=== PATIENT | male | born 1945 | race Caucasian/White ===

== ENCOUNTER 2017-01-01 07:28 | Outpatient (CLI) | payer BC | END 2017-01-01 07:29 | disposition home or self-care (01) | LOC: PET 07:28 | PROVIDERS: ATTEND Internal Medicine Hematology & Oncology | DX: C34.80 Malignant neoplasm of overlapping sites of unspecified bronchus and lung (principal) ==

== ENCOUNTER 2017-01-04 13:26 | Outpatient (CLI) | payer BC ==
--- NOTE | 2017-01-04 21:40 | PET ---
NUCLEAR MEDICINE FDG PET CT: (Positron Emission Tomography) DATE: 01/04/17 HISTORY: 71-year-old male. Restaging of lung cancer. COMPARISON: 07/27/16 TECHNIQUE: IV injection F-18 Fluorodeoxyglucose (FDG) dose: 10.4 mCi PET and attenuation-correction CT performed from skull base to proximal thighs. FINDINGS: SUV (standard uptake value) numbers given are maximum SUV's: The previously demonstrated residual soft tissue fullness of the left hilum, with SUV of 2.9, has no t significantly changed (current SUV is 3.1). There has been interval increase in volume of the smal l left pleural effusion. There is a new left lower lobe consolidation which is contiguous with both the left hilar fullness and the left pleural effusion, and is not hypermetabolic (SUV 2.3). This pro bably represents postobstructive atelectasis at the left lower lobe. There is a new, approximately 2 x 1.5 cm right anterior upper paratracheal mediastinal lymph node wi th SUV of 8.2. There is a new, tiny, approximately 0.6 cm noncalcified pulmonary nodule in the anterior segment of the right upper lobe. It does not exhibit increased FDG uptake (SUV of 1.3), but it is probably too small for PET scan. There is a new soft tissue density mass contiguous with, and inseparable from both the right inferio r mediastinum and right posterior hilum, with SUV of 4.8. Its size is difficult to measure on a nonc ontrast CT because it is inseparable from the adjacent structures. A contrast enhanced CT may be use ful for this. No evidence of intra-abdominal, intrapelvic, or cervical metastatic disease. Approximately 4.5 cm in frarenal fusiform abdominal aortic aneurysm. IMPRESSION: 1. A new hypermetabolic, malignant right anterior paratracheal upper mediastinal lymph node. 2. A new tiny right upper lobe (anterior segment) pulmonary nodule which is probably too small for PET scan (low SUV). It is somewhat suspicious for either a new primary malignancy or metastatic deposit. 3. A new focus of hypermetabolic activity in the right posterior hilum, contiguous with the rig ht inferior mediastinum. This is questionable for new primary lung cancer. 4. The old left hilar mass remains borderline hypermetabolic, not significantly changed since p revious study. 5. New finding of postobstructive atelectasis in the left lower lobe. 6. Interval increase in volume of left pleural effusion. 7. 4.5 cm infrarenal fusiform abdominal aortic aneurysm. ALVINA Ghotra POS: JULIANNA
== END 2017-01-04 13:27 | disposition home or self-care (01) ==
LOC: PET 13:26
PROVIDERS: ATTEND Internal Medicine Hematology & Oncology
DX: C34.80 Malignant neoplasm of overlapping sites of unspecified bronchus and lung (principal); J98.11 Atelectasis; J90 Pleural effusion, not elsewhere classified; I71.4 Abdominal aortic aneurysm, without rupture; R91.8 Other nonspecific abnormal finding of lung field
CPT/HCPCS: 78815; A9552